=== PATIENT | male | born 1985 | race African-American/Black ===

== ENCOUNTER 2017-02-21 11:12 | Emergency (ER) | payer OTHER ==
[~2017-02-21] VITALS: Ht 180.3 cm; Wt 75.0 kg
[2017-02-21] MEDS ORDERED: SODIUM CHLORIDE 0.9% 500 ML IV ONE (14:34)
[2017-02-21] MEDS ORDERED: IBUPROFEN 600MG TABLET PO ONE (15:00)
[2017-02-21 15:32] LABS: BASOPHILS % 0.5 % (0.0-2.0); EOSINOPHILS % 2.4 % (0.0-5.0); HEMATOCRIT. 38.7 % (42.0-52.0); HEMOGLOBIN. 12.9 g/dL (14.0-18.0); LYMPHOCYTES % 42.3 % (20.0-50.0); MEAN CORPUSCULAR HEMOGLOBIN 30.1 pg (28.0-32.0); MEAN CORPUSCULAR VOLUME 90.2 fL (80.0-94.0); MEAN PLATELET VOLUME 7.3 fl (7.4-10.4); MONOCYTES % 6.5 % (2.0-8.0); NEUTROPHILS % 48.3 % (40.0-76.0); PLATELET 277 x1000/uL (130-400); RED CELL DISTRIBUTION WIDTH 14.4 % (11.6-14.6)
[2017-02-21 15:35] LABS: CHLORIDE 109 mEq/L (98-107)
[2017-02-21 15:41] LABS: CARBON DIOXIDE 27 mEq/L (21-32)
[2017-02-21 17:00] VITALS: BP 122/78
[2017-02-21 17:51] LABS: CLARITY URINE CLEAR (CLEAR); COLOR URINE YELLOW (YELLOW); GLUCOSE URINE NEGATIVE (NEGATIVE); KETONES URINE NEGATIVE (NEGATIVE); LEUKOCYTE ESTERASE URINE NEGATIVE (NEGATIVE); NITRITE URINE NEGATIVE (NEGATIVE); OCCULT BLOOD URINE NEGATIVE (NEGATIVE); PH URINE 6.5 (4.5-8.0); PROTEIN URINE NEGATIVE (NEGATIVE); SPECIFIC GRAVITY URINE 1.016 (1.005-1.030); UROBILINOGEN URINE 0.2 E.U./dL (0.2-1.0)
[2017-02-21 18:06] LABS: *AMPHETAMINES SCREEN URINE NEGATIVE (NEGATIVE); *BARBITURATES SCREEN URINE NEGATIVE (NEGATIVE); *BENZODIAZEPINES SCREEN URINE NEGATIVE (NEGATIVE); *COCAINE SCREEN URINE NEGATIVE (NEGATIVE); CANNABINOID URINE SCREEN PRESUMTIVE POSITIVE (NEGATIVE); METHADONE URINE SCREEN NEGATIVE (NEGATIVE); OPIATES URINE SCREEN NEGATIVE (NEGATIVE); PHENCYCLIDINE URINE SCREEN NEGATIVE (NEGATIVE)
== END 2017-02-21 19:00 | disposition home or self-care (01) ==
LOC: ER 13:02
DX: S20.219A Contusion of unspecified front wall of thorax, initial encounter (principal); R53.83 Other fatigue; F12.10 Cannabis abuse, uncomplicated; F17.210 Nicotine dependence, cigarettes, uncomplicated; X58.XXXA Exposure to other specified factors, initial encounter; Y93.89 Activity, other specified; Y92.018 Other place in single-family (private) house as the place of occurrence of the external cause
CPT/HCPCS: 36415; 71010; 80053; 80305; 81003; 84443; 85025; 87804; 93005; 96360; 99285; J7040

== ENCOUNTER 2017-04-12 14:36 | Emergency (ER) | payer OTHER ==
[~2017-04-12] VITALS: Ht 180.3 cm; Wt 65.0 kg
[2017-04-12] MEDS ORDERED: KETOROLAC 60MG/2ML VIAL IM ONE (18:45)
[2017-04-12 19:49] VITALS: BP 116/62
== END 2017-04-12 19:50 | disposition home or self-care (01) ==
LOC: ER 14:51
DX: M25.572 Pain in left ankle and joints of left foot (principal); F17.200 Nicotine dependence, unspecified, uncomplicated
CPT/HCPCS: 96372; 99283; J1885; Z7610

== ENCOUNTER 2018-10-27 22:16 | Emergency (ER) | payer SELFPAY ==
[~2018-10-27] VITALS: Ht 180.3 cm; Wt 73.0 kg
[2018-10-28] MEDS ORDERED: IBUPROFEN 600MG TABLET PO ONE
[2018-10-28] MEDS ORDERED: HYDROCODONE/ACETAMINOPHEN 5/325MG TABLET PO ONE
[2018-10-28 00:30] VITALS: BP 134/68
== END 2018-10-28 02:11 | disposition home or self-care (01) ==
LOC: ER 23:35
DX: S83.92XA Sprain of unspecified site of left knee, initial encounter (principal); F12.10 Cannabis abuse, uncomplicated; F17.200 Nicotine dependence, unspecified, uncomplicated; V29.3XXA Motorcycle rider (driver) (passenger) injured in unspecified nontraffic accident, initial encounter; Y93.89 Activity, other specified; Y92.89 Other specified places as the place of occurrence of the external cause; Y99.8 Other external cause status
CPT/HCPCS: 73502; 73552; 73560; 99283; Z7610

== ENCOUNTER 2018-10-29 18:16 | Emergency (ER) | payer SELFPAY ==
[~2018-10-29] VITALS: Ht 180.3 cm; Wt 73.0 kg
[2018-10-29 21:07] VITALS: BP 120/72
== END 2018-10-29 21:38 | disposition home or self-care (01) ==
LOC: ER 19:33
DX: M25.562 Pain in left knee (principal); F12.10 Cannabis abuse, uncomplicated; F17.210 Nicotine dependence, cigarettes, uncomplicated
CPT/HCPCS: 99281

== ENCOUNTER 2022-02-12 22:52 | Emergency (ER) | payer SELFPAY ==
[~2022-02-12] VITALS: Ht 180.3 cm; Wt 82.9 kg
[2022-02-12] MEDS ORDERED: KETOROLAC 60MG/2ML VIAL IM ONE (23:45)
[2022-02-13] MEDS ORDERED: OXYC-100 PO (02:28)
[2022-02-13 02:30] VITALS: BP 131/92
[2022-02-13] MEDS ORDERED: KETOROLAC 60MG/2ML VIAL IM NR (02:30)
== END 2022-02-13 02:39 | disposition home or self-care (01) ==
LOC: ER 22:52
DX: K08.89 Other specified disorders of teeth and supporting structures (principal); F12.10 Cannabis abuse, uncomplicated
CPT/HCPCS: 96372; 99284; J1885